=== PATIENT | female | born 1985 | race Caucasian/White ===

== ENCOUNTER 2020-04-15 22:00 | Emergency (ER) | payer OTHER ==
[~2020-04-15] VITALS: Ht 149.9 cm; Wt 70.3 kg
[~2020-04-15 22:00] MED LIST: CEFTIN250 MG PO; CEFUROXIME500 MG PO; PYRIDIUM DS200 MG PO
[2020-04-16] MEDS ORDERED: KEFLEX500 MG PO (01:12)
[2020-04-16] MEDS ORDERED: PYRIDIUM DS200 MG PO (01:12)
== END 2020-04-16 01:26 ==
LOC: ER 22:00
DX: N39.0 Urinary tract infection, site not specified (principal)